=== PATIENT | male | born 1990 | race Caucasian/White ===

== ENCOUNTER → 2021-12-22 08:55 | Outpatient (CLI) | payer BC, SELFPAY ==
--- NOTE | ~2021-12-22 | XR_ITS ---
EXAMINATION: XR hip RT min 2V DATE: 12/22/2021 09:38 INDICATION: Right hip pain. TECHNIQUE: 2 views of right hip were obtained. COMPARISON: None. FINDINGS: Bone alignment is normal. No fracture. Right hip joint space is normal. IMPRESSION: 1. Normal right hip. Reviewed, dictated and finalized at location B. IMPRESSION: 1. Normal right hip.
--- NOTE | ~2021-12-22 | XR_ITS ---
EXAMINATION: XR thoracic spine 3V, XR lumbar spine 2-3V DATE: 12/22/2021 09:38 INDICATION: Backache TECHNIQUE: 1. One AP, lateral and lateral swimmer's views of the thoracic spine were obtained. 2. AP, lateral and coned-down lateral lumbosacral views of the lumbar spine were obtained. COMPARISON: None. FINDINGS: Thoracic spine: 10 degree dextroscoliosis between T4 and T8. There is also mild thoracic kyphosis with minimal anteri or wedging of a few mid thoracic vertebral bodies. Multilevel mild disc height loss throughout the th oracic spine. Visualized lungs are clear. No pleural effusion or pneumothorax. Cardiomediastinal silh ouette is normal. Lumbar spine: Lumbar alignment is normal. Lumbar vertebral body and disc heights are normal. The sacrum and bilater al sacral iliac joints are normal.. IMPRESSION: 1. Mild thoracic dextroscoliosis with mild spondylosis. 2. Mild thoracic kyphosis with minimal anterior wedging of a few mid thoracic vertebral bodies. Reviewed, dictated and finalized at location A. IMPRESSION: 1. Mild thoracic dextroscoliosis with mild spondylosis. 2. Mild thoracic kyphosis with minimal anterior wedging of a few mid thoracic v ertebral bodies.
== END ==
PROVIDERS: PCP Nurse Practitioner Family; Visit Provider Nurse Practitioner Family
DX: M25.551 Pain in right hip (principal); M47.814 Spondylosis without myelopathy or radiculopathy, thoracic region; M40.294 Other kyphosis, thoracic region
CPT/HCPCS: 72072; 72100; 73502